=== PATIENT | male | born 1970 | race African-American/Black ===

== ENCOUNTER → 2020-01-11 | Outpatient (CLI) | payer OTHER ==
--- NOTE | 2020-01-11 13:28 | RAD ---
EXAM: Lumbar spine, 2 views. HISTORY: Pain. Disability instrumentation. COMPARISON: None. FINDINGS: 2 views of the lumbar spine are obtained. There is a transitional lumbosacral segment. This considered a partially sacralized L5 segment with rheumatoid L5-S1 disc. This is a normal variant. There is no listhesis. There are minimal endplate depressions at L2. The disc spaces are preserved. IMPRESSION: 1. Transitional lumbosacral segment, a normal variant. 2. No acute osseous finding. Electronically signed by: Lachelle Gaston MD (01/11/2020 1:25 PM) [facility] – [place]
== END | disposition home or self-care (01) ==
LOC: RAD 11:21
PROVIDERS: ATTEND Family Medicine
DX: M53.87 Other specified dorsopathies, lumbosacral region (principal); M51.26 Other intervertebral disc displacement, lumbar region
CPT/HCPCS: 72100